=== PATIENT | female | born 1955 | race Caucasian/White ===

== ENCOUNTER 2017-09-20 12:29 | Emergency (ER) | payer OTHER ==
[2017-09-20 12:40] VITALS: RESP 18
[2017-09-20 13:08] LABS: Basophils % (A) 0 %; Eosinophils # (A) 0.3 k/uL (0-0.7); Eosinophils % (A) 4 %; HCT 40.3 % (34.0-46.0); HGB 13.8 gm/dL (11.4-16.0); Lymphocytes # (A) 1.9 k/uL (1.0-4.8); Lymphocytes % (A) 29 %; MCH 27.8 pg (25.0-35.0); MCHC 34.1 g/dL (31.0-37.0); MCV 81.4 fL (80.0-100.0); Mean Platelet Volume 6.6; Monocytes # (A) 0.4 k/uL (0-1.0); Monocytes % (A) 6 %; Neutrophils # (A) 3.9 k/uL (1.3-7.7); Neutrophils % (A) 58 %; Platelet Count 276 k/uL (150-450); RBC 4.95 m/uL (3.80-5.40); RDW 13.1 % (11.5-15.5); WBC 6.7 k/uL (3.8-10.6)
[2017-09-20 13:13] LABS: Prothrombin Time 9.9 sec (9.0-12.0)
[2017-09-20 13:18] LABS: ALT 29 U/L (9-52); AST 21 U/L (14-36); Albumin 4.1 g/dL (3.5-5.0); Alkaline Phosphatase 75 U/L (38-126); Anion Gap 10 mmol/L; Blood Urea Nitrogen 11 mg/dL (7-17); Calcium 9.1 mg/dL (8.4-10.2); Carbon Dioxide 31 mmol/L (22-30); Chloride 97 mmol/L (98-107); Glucose 115 mg/dL (74-99); Magnesium 1.9 mg/dL (1.6-2.3); Potassium 3.7 mmol/L (3.5-5.1); Sodium 138 mmol/L (137-145); Total Bilirubin 0.3 mg/dL (0.2-1.3); Total Protein 6.3 g/dL (6.3-8.2)
[2017-09-20 13:23] LABS: Creatine Kinase 114 U/L (30-135)
[2017-09-20 13:34] LABS: Creatine Kinase MB 1.1 ng/mL (0.0-2.4); Troponin I <0.012 ng/mL (0.000-0.034)
[2017-09-20] MEDS ORDERED: ASPIRIN 81 MG PO STA (13:34)
[2017-09-20] MEDS ORDERED: NITROGLYCERIN OINT 1 INCH/GM PACKET TOPICAL STA (13:34)
--- NOTE | 2017-09-20 13:37 | ED ---
General Adult HPI - General Chief complaint: Arrhythmia/Palpitations Stated complaint: heart palpitations/SOB Time Seen by Provider: 09/20/17 12:40 Source: patient, RN notes reviewed Mode of arrival: wheelchair Limitations: no limitations - History of Present Illness Initial comments: This is a 62-year-old female with a past medical history significant for high blood pressure high cholesterol and a smoking history 24 years ago and a strong family history for cardiac disease. Patient states over the last few days her blood pressures been high she's also had some chest discomfort which is associated with shortness of breath that lasted about 10 minutes. Patient states yesterday she was getting some jaw pain and bilateral arm pain. Patient states right now she is not having any of those symptoms her only symptom currently is generalized weakness. Patient denies any recent fever chills or cough. Patient denies headache patient denies numbness weakness. Patient denies lightheadedness dizziness or near syncopal episode. - Related Data Home Medications Medication Instructions Recorded Confirmed ARIPiprazole [Abilify] 2 mg PO DAILY 10/08/14 09/20/17 Biotin 5 mg PO DAILY 10/08/14 09/20/17 Cod Liver Oil 1 cap PO DAILY 10/08/14 09/20/17 Cranberry Conc/C/Bacill Coag 1 tab PO DAILY 10/08/14 09/20/17 [Cranberry Tablet] DULoxetine HCL [Cymbalta] 60 mg PO DAILY 10/08/14 09/20/17 Docusate [Colace] 100 mg PO BID 10/08/14 09/20/17 Fluticasone Propionate [Flonase 1 spray EA NOSTRIL DAILY 10/08/14 09/20/17 Allergy Relief] HYDROcodone/APAP 10-325MG [[place] 1 tab PO Q6H PRN 10/08/14 09/20/17 10] Losartan Potassium [Cozaar] 100 mg PO HS 10/08/14 09/20/17 Montelukast [Singulair] 10 mg PO HS 10/08/14 09/20/17 Pravastatin Sodium [Pravachol] 10 mg PO HS 10/08/14 09/20/17 Pregabalin [Lyrica] 150 mg PO BID PRN 10/08/14 09/20/17 clonazePAM [KlonoPIN] 0.5 mg PO QID PRN 10/08/14 09/20/17 diphenhydrAMINE [Benadryl] 25 mg PO BID PRN 10/08/14 09/20/17 traZODone HCL [Desyrel] 100 mg PO HS 10/08/14 09/20/17 Ascorbic Acid [Vitamin C] 1,000 mg PO DAILY 09/20/17 09/20/17 Calcium Carbonate [Calcium] 600 mg PO DAILY 09/20/17 09/20/17 Multivit with Calcium,Iron,Min 1 tab PO DAILY 09/20/17 09/20/17 [Women's Multivitamin] Allergies Allergy/AdvReac Type Severity Reaction Status Date / Time iodine Allergy Rash/Hives Verified 09/20/17 14:14 nickel Allergy Rash/Hives Verified 09/20/17 14:14 Review of Systems ROS Statement: Those systems with pertinent positive or pertinent negative responses have been documented in the HPI. ROS Other: All systems not noted in ROS Statement are negative. Past Medical History Past Medical History: Fibromyalgia, GERD/Reflux, Hyperlipidemia, Hypertension, Osteoarthritis (OA) Additional Past Medical History / Comment(s): recent UTI-just finished antibiotics History of Any Multi-Drug Resistant Organisms: None Reported Past Surgical History: Bariatric Surgery, Section, Joint Replacement, Tonsillectomy Additional Past Surgical History / Comment(s): both knees replaced, gastric sleeve Past Anesthesia/Blood Transfusion Reactions: Postoperative Nausea & Vomiting ( PONV) Past Psychological History: Anxiety, Depression Smoking Status: Former smoker Past Alcohol Use History: None Reported Past Drug Use History: None Reported - Past Family History Mother Family Medical History: Cancer General Exam - General Exam Comments Initial Comments: GENERAL: Patient is well-developed and well-nourished. Patient is nontoxic and well- hydrated and is in mild distress. ENT: Neck is soft and supple. No significant lymphadenopathy is noted. Oropharynx is clear. Moist mucous membranes. Neck has full range of motion without eliciting any pain. EYES: The sclera were anicteric and conjunctiva were pink and moist. Extraocular movements were intact and pupils were equal round and reactive to light. Eyelids were unremarkable. PULMONARY: Unlabored respirations. Good breath sounds bilaterally. No audible rales rhonchi or wheezing was noted. CARDIOVASCULAR: There is a regular rate and rhythm without any murmurs gallops or rubs. ABDOMEN: Soft and nontender with normal bowel sounds. No palpable organomegaly was noted. There is no palpable pulsatile mass. SKIN: Skin is clear with no lesions or rashes and otherwise unremarkable. NEUROLOGIC: Patient is alert and oriented x3. Cranial nerves II through XII are grossly intact. Motor and sensory are also intact. Normal speech, volume and content. Symmetrical smile. MUSCULOSKELETAL: Normal extremities with adequate strength and full range of motion. No lower extremity swelling or edema. No calf tenderness. LYMPHATICS: No significant lymphadenopathy is noted PSYCHIATRIC: Normal psychiatric evaluation. Normal interpersonal interactions appears functionally intact in deals appropriately with others. No signs of depression. No signs of anxiety. Limitations: no limitations Course Vital Signs 09/20/17 09/20/17 09/20/17 12:37 14:39 16:26 Temperature 97.6 F Pulse Rate 93 89 89 Respiratory 18 18 18 Rate Blood Pressure 150/71 146/76 144/78 O2 Sat by Pulse 96 99 97 Oximetry 09/20/17 17:53 Temperature 98 F Pulse Rate 92 Respiratory 18 Rate Blood Pressure 154/66 O2 Sat by Pulse 97 Oximetry Medical Decision Making - Medical Decision Making EKG shows a normal sinus rhythm at 83 bpm MN interval 290 QRS is 78 QT interval 350 QTC is 420. Patient's EKG shows no ST segment elevation or depression or T wave abnormalities are noted. Chest x-ray shows no acute abnormality. Patient was chest pain-free throughout her ED course and her troponin was negative so I held the heparin at this time. I spoke with Dr. Major he agreed to admit the patient admitted the patient and I consult to cardiology. - Lab Data Result diagrams: 09/20/17 12:45 09/20/17 12:45 Lab Results 09/20/17 09/20/17 09/20/17 Range/Units 12:45 12:45 12:45 WBC 6.7 (3.8-10.6) k/uL RBC 4.95 (3.80-5.40) m/uL Hgb 13.8 (11.4-16.0) gm/dL Hct 40.3 (34.0-46.0) % MCV 81.4 (80.0-100.0) fL MCH 27.8 (25.0-35.0) pg MCHC 34.1 (31.0-37.0) g/dL RDW 13.1 (11.5-15.5) % Plt Count 276 (150-450) k/uL Neutrophils % 58 % Lymphocytes % 29 % Monocytes % 6 % Eosinophils % 4 % Basophils % 0 % Neutrophils # 3.9 (1.3-7.7) k/uL Lymphocytes # 1.9 (1.0-4.8) k/uL Monocytes # 0.4 (0-1.0) k/uL Eosinophils # 0.3 (0-0.7) k/uL Basophils # 0.0 (0-0.2) k/uL PT (9.0-12.0) sec INR (<1.2) APTT (22.0-30.0) sec D-Dimer (<0.60) mg/L FEU Sodium 138 (137-145) mmol/L Potassium 3.7 (3.5-5.1) mmol/L Chloride 97 L (98-107) mmol/L Carbon Dioxide 31 H (22-30) mmol/L Anion Gap 10 mmol/L BUN 11 (7-17) mg/dL Creatinine 0.60 (0.52-1.04) mg/dL Est GFR (CKD-EPI)AfAm >90 (>60 ml/min/1.73 sqM) Est GFR (CKD-EPI)NonAf >90 (>60 ml/min/1.73 sqM) Glucose 115 H (74-99) mg/dL Calcium 9.1 (8.4-10.2) mg/dL Magnesium 1.9 (1.6-2.3) mg/dL Total Bilirubin 0.3 (0.2-1.3) mg/dL AST 21 (14-36) U/L ALT 29 (9-52) U/L Alkaline Phosphatase 75 (38-126) U/L Total Creatine Kinase 114 (30-135) U/L CK-MB (CK-2) 1.1 (0.0-2.4) ng/mL CK-MB (CK-2) Rel Index 1.0 Troponin I <0.012 (0.000-0.034) ng/mL Total Protein 6.3 (6.3-8.2) g/dL Albumin 4.1 (3.5-5.0) g/dL 04/19/18 04/19/18 Range/Units 12:45 14:22 WBC (3.8-10.6) k/uL RBC (3.80-5.40) m/uL Hgb (11.4-16.0) gm/dL Hct (34.0-46.0) % MCV (80.0-100.0) fL MCH (25.0-35.0) pg MCHC (31.0-37.0) g/dL RDW (11.5-15.5) % Plt Count (150-450) k/uL Neutrophils % % Lymphocytes % % Monocytes % % Eosinophils % % Basophils % % Neutrophils # (1.3-7.7) k/uL Lymphocytes # (1.0-4.8) k/uL Monocytes # (0-1.0) k/uL Eosinophils # (0-0.7) k/uL Basophils # (0-0.2) k/uL PT 9.9 (9.0-12.0) sec INR 1.0 (<1.2) APTT 25.0 (22.0-30.0) sec D-Dimer 0.26 (<0.60) mg/L FEU Sodium (137-145) mmol/L Potassium (3.5-5.1) mmol/L Chloride (98-107) mmol/L Carbon Dioxide (22-30) mmol/L Anion Gap mmol/L BUN (7-17) mg/dL Creatinine (0.52-1.04) mg/dL Est GFR (CKD-EPI)AfAm (>60 ml/min/1.73 sqM) Est GFR (CKD-EPI)NonAf (>60 ml/min/1.73 sqM) Glucose (74-99) mg/dL Calcium (8.4-10.2) mg/dL Magnesium (1.6-2.3) mg/dL Total Bilirubin (0.2-1.3) mg/dL AST (14-36) U/L ALT (9-52) U/L Alkaline Phosphatase (38-126) U/L Total Creatine Kinase (30-135) U/L CK-MB (CK-2) (0.0-2.4) ng/mL CK-MB (CK-2) Rel Index Troponin I (0.000-0.034) ng/mL Total Protein (6.3-8.2) g/dL Albumin (3.5-5.0) g/dL Disposition Clinical Impression: Unstable angina Disposition: ADMITTED IP TO THIS HOSP Is patient prescribed a controlled substance at d/c from ED?: No Referrals: Derek Major MD [Primary Care Provider] - 1-2 days Time of Disposition: 14:55
--- NOTE | 2017-09-20 14:06 | XR ---
EXAMINATION TYPE: XR chest 2V DATE OF EXAM: 09/20/2017 COMPARISON: 11/25/2008 HISTORY: Shortness of breath TECHNIQUE: Frontal and lateral views of the chest are obtained. FINDINGS: Scattered senescent parenchymal changes noted. No evidence for infiltrate. No evidence for atelectasis. Heart size is stable. Mediastinal structures are stable and grossly unremarkable. No evidence for hilar prominence. Degenerative changes dorsal spine. IMPRESSION: 1. No evidence for acute pulmonary disease.
[2017-09-20] MEDS ORDERED: NITROGLYCERIN SL TABS 0.4 MG TAB SUBLINGUAL PRN (14:55)
[2017-09-20] MEDS ORDERED: HYDROcodone/APAP 10-325MG 1 EACH TAB PO ONE (16:22)
[2017-09-20] MEDS ORDERED: clonazePAM 0.5 MG TAB PO STA (16:22)
[2017-09-20 17:54] VITALS: BP 154/66; PULSE 92; TEMP 98
[2017-09-20] MEDS ORDERED: NITROGLYCERIN OINT 1 INCH/GM PACKET TOPICAL SCH (19:00)
[2017-09-21] MEDS ORDERED: ASPIRIN 325 MG TAB PO SCH (09:00)
== END 2017-09-20 18:31 | disposition other institution (70) ==
LOC: EC 12:29 → 3OBS 14:55 → UNDOADMOB 14:55 → EC 18:31
DX: I20.0 Unstable angina (principal); M79.7 Fibromyalgia; E78.5 Hyperlipidemia, unspecified; I10 Essential (primary) hypertension; F41.9 Anxiety disorder, unspecified; F32.9 Major depressive disorder, single episode, unspecified; Z87.891 Personal history of nicotine dependence; Z96.653 Presence of artificial knee joint, bilateral; Z98.84 Bariatric surgery status; Z79.51 Long term (current) use of inhaled steroids; Z79.899 Other long term (current) drug therapy; Z91.048 Other nonmedicinal substance allergy status
CPT/HCPCS: 36415; 71046; 80053; 82550; 82553; 83735; 84484; 85025; 85379; 85610; 85730; 93005; 99285

== ENCOUNTER → 2017-11-15 | Outpatient (CLI) | payer OTHER | END | disposition home or self-care (01) | LOC: RADMRIMAIN 14:06 | PROVIDERS: ATTEND Internal Medicine | DX: Z53.9 Procedure and treatment not carried out, unspecified reason (principal) ==

== ENCOUNTER → 2017-12-07 | Outpatient (CLI) | payer OTHER ==
--- NOTE | 2017-12-08 01:52 | MR ---
EXAMINATION TYPE: MR marta/vincent wo con DATE OF EXAM: 12/07/2017 COMPARISON: 02/02/2015 thoracic spine. 07/02/2014. Lumbar spine. HISTORY: Chronic mid/lower back pain TECHNIQUE: Multiplanar, multisequence imaging of the lumbar spine is performed without IV contrast. FINDINGS: Thoracic vertebra have normal alignment. There is no significant disc space narrowing. Ther e is no compression fracture. There tiny posterior disc bulges at several levels of the thoracic spin e. There is no spinal stenosis. There is developmentally adequate canal. There is no thoracic paraspi nal mass. The posterior elements are intact. I see no bony destructive process. The lumbar vertebra have fairly normal alignment. There is 3 mm anterior subluxation of L4 in relatio n L5. The posterior elements are intact. There is some facet arthropathy and mild lateral recess sten osis at L4-5. There is no lumbar paraspinal mass. There is no lumbar compression fracture. The neural foramina appear fairly well-maintained. I see no bony destructive process. There is no lumbar compre ssion fracture. IMPRESSION: Minor degenerative changes in the thoracic and lumbar spine. No compression fracture. No spinal steno sis. There is a mild degenerative subluxation at L4-5 that is slightly more than last exam. There is increase in the lateral recess stenosis at L4-5 compared to old exam. No fracture. Small posterior di sc bulging in the thoracic and lumbar spine without impingement on the neural elements.
== END | disposition home or self-care (01) ==
LOC: RADMRIMAIN 16:27
PROVIDERS: ATTEND Internal Medicine
DX: M48.061 Spinal stenosis, lumbar region without neurogenic claudication (principal); M51.25 Other intervertebral disc displacement, thoracolumbar region; M47.815 Spondylosis without myelopathy or radiculopathy, thoracolumbar region
CPT/HCPCS: 72146; 72148

== ENCOUNTER → 2020-04-09 | Outpatient (CLI) | payer MEDICARE ==
--- NOTE | 2020-04-12 12:17 | MM ---
Reason for exam: screening (asymptomatic). Last mammogram was performed 3 years ago. History: Patient is postmenopausal and had first child at age 31. Family history of breast cancer in mother at age 83. Took estrogen for 6 months. Took progesterone for 6 months. Physical Findings: A clinical breast exam by your physician is recommended on an annual basis and results should be correlated with mammographic findings. MG Screening Mammo w CAD Bilateral CC and MLO view(s) were taken. Prior study comparison: March 28, 2017, bilateral MG screening mammo w CAD. March 15, 2015, bilateral MG screening mammo w CAD. Finding: There are typically benign round calcifications in both breasts. There is no discrete abnormality. ASSESSMENT: Benign, BI-RAD 2 RECOMMENDATION: Routine screening mammogram of both breasts in 1 year.
== END | disposition home or self-care (01) ==
LOC: RADMAMWWP 14:36
PROVIDERS: ATTEND Internal Medicine
DX: Z12.31 Encounter for screening mammogram for malignant neoplasm of breast (principal)
CPT/HCPCS: 77067

== ENCOUNTER 2024-11-25 06:52 | Day surgery (SDC) | payer MEDICARE ==
[2024-11-20 15:43] VITALS: BMI 34.4
[~2024-11-25 06:52] MED LIST: LIDOCAINE 1% (10MG/ML) FOR IV START INTRADERMA PRN
[2024-11-25 07:27] VITALS: TEMP 98.1
[2024-11-25] MEDS: LACTATED RINGERS 1,000 ML IV SCH (07:30)
[2024-11-25] MEDS: IV FLUID CONTINUATION 1,000 ML IV ONE (07:30)
[2024-11-25] MEDS ORDERED: PROPOFOL 10 MG/ML 20 ML VIAL IV ONE (07:57)
[2024-11-25] MEDS ORDERED: LIDOCAINE 2% (PF) 20 MG/ML 5 ML VIAL ONE (07:57)
[2024-11-25] MEDS ORDERED: GLYCOPYRROLATE 0.2 MG/ML 2 ML VIAL ONE (07:57)
--- NOTE | 2024-11-25 08:01 | P.GSHP ---
History of Present Illness H&P Date: 11/25/24 Chief Complaint: GERD, low iron, change in bowel habits 69-year-old female here for upper and lower endoscopy. Patient with low iron reportedly. Patient has had intermittent reflux and occasional vomiting. History of previous sleeve gastrectomy at [facility]. Patient describes incomplete evacuation. Says she often feels impacted. Has lower pelvic pressure type discomfort. No recent imaging. Family history of colon cancer in her aunt. 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 1 BROTHER WITH SKIN CANCER Sister(s) Family Medical History: Cancer Additional Family Medical History / Comment(s): SKIN Medications and Allergies Home Medications Medication Instructions Recorded Confirmed Type Cranberry Conc/C/Bacill Coag 2 tab PO DAILY 10/08/14 11/25/24 History [Cranberry Tablet] DULoxetine HCL [Cymbalta] 120 mg PO DAILY 10/08/14 11/25/24 History Losartan Potassium [Cozaar] 100 mg PO HS 10/08/14 11/25/24 History Montelukast [Singulair] 10 mg PO HS 10/08/14 11/25/24 History traZODone HCL [Desyrel] 50 mg PO HS 10/08/14 11/25/24 History Acetaminophen [Tylenol Arthritis] 1,300 mg PO TID 11/20/24 11/25/24 History Albuterol Sulfate [Albuterol 2 puff PO Q6H PRN 11/20/24 11/25/24 History Sulfate Hfa] Cetirizine HCl [Zyrtec] 10 mg PO DAILY 11/20/24 11/25/24 History Metoprolol Tartrate [Lopressor] 100 mg PO BID 11/20/24 11/25/24 History Triamcinolone Acetonide 1 applic TOPICAL DAILY PRN 11/20/24 11/25/24 History [Triamcinolone Acetonide 0.1% Lotion] dilTIAZem HCL 60 mg PO TID 11/20/24 11/25/24 History Apixaban [Eliquis] 5 mg PO BID 11/25/24 11/25/24 History Allergies Allergy/AdvReac Type Severity Reaction Status Date / Time amoxicillin [From Augmentin] Allergy Nausea & Verified 11/25/24 07:15 Vomiting & Diarrhea clavulanic acid Allergy Nausea & Verified 11/25/24 07:15 [From Augmentin] Vomiting & Diarrhea iodine Allergy Rash/Hives Verified 11/25/24 07:15 nickel Allergy Rash/Hives Verified 11/25/24 07:15 Surgical - Exam Vital Signs Temp Pulse Resp BP Pulse Ox 98.1 F 84 16 125/86 97 11/25/24 07:20 11/25/24 07:20 11/25/24 07:20 11/25/24 07:20 11/25/24 07:20 Physical exam: General: Well-developed, well-nourished HEENT: Normocephalic, sclerae nonicteric Abdomen: Nontender, nondistended Extremities: No edema Neuro: Alert and oriented Assessment and Plan (1) Change in bowel habits Narrative/Plan: Will proceed with upper and lower endoscopy Current Visit: Yes Status: Acute Code(s): R19.4 - CHANGE IN BOWEL HABIT SNOMED Code(s): 18096614
--- NOTE | 2024-11-25 08:26 | P.PCN ---
Date of Procedure: 11/25/24 Procedure(s) Performed: PREOPERATIVE DIAGNOSIS: Low iron, GERD, change in bowel habits POSTOPERATIVE DIAGNOSIS: Mild gastritis, small hiatal hernia, mild distal esophagitis, diverticulosis, transverse colon polyp PROCEDURE: 1. EGD with biopsy 2. Colonoscopy with biopsy [place] [facility] [place]GEON: Jim Ybarra M.D. SPECIMENS: Antrum, distal esophagus, transverse colon polyp ENDOSCOPIC PROCEDURE: The patient was on the endoscopy table in the left decubitus position. The Olympus gastroscope was inserted into the oropharynx and passed under direct visualization to the region of the third portion of the duodenum. From that point the scope was slowly withdrawn inspecting all surfaces carefully. There were no neoplastic inflammatory or polypoid lesions throughout the duodenum. The pylorus was widely patent. The stomach was carefully inspected. There was mild gastritis present. A biopsy of the antrum took place to rule out H. pylori. No retroflexion took place because of the previous sleeve gastrectomy. The sleeve itself was normal shape without significant angulation or tortuosity. There was no signs of obstruction. The patient had a small 1 cm hiatal hernia. At the distal esophagus there was mild noncircumferential inflammatory change. A biopsy took place. The remainder the esophagus appeared normal. The patient was kept on the endoscopy table in the left decubitus position. The Olympus colonoscope was inserted into the anus and passed under direct visualization to the base of the cecum. The appendiceal orifice was visualized. From that point the scope was slowly withdrawn inspecting all surfaces carefully. There were no neoplastic inflammatory or polypoid lesions throughout the cecum or ascending colon. In the transverse colon a small polyp was seen and removed using the cold biopsy forceps. The remainder of the transverse descending sigmoid and rectum was normal. The patient had mild left-sided diverticulosis as well. Digital rectal examination was normal. The patient was taken to the recovery room in stable condition per anesthesia guidelines. RECOMMENDATIONS: Await biopsy results. Low iron could be on the basis of gastritis and distal esophagitis. Consideration for daily antiacids will be discussed with the patient. Consider CT abdomen pelvis given the patient's complaints of lower abdominal discomforts. Will contact patient with timing for next colonoscopy.
[2024-11-25 08:43] VITALS: RESP 16
[2024-11-25 09:25] VITALS: BP 141/71; PULSE 67
== END 2024-11-25 09:46 | disposition home or self-care (01) ==
LOC: ORWHC2ENDO 06:52
PROVIDERS: ATTEND Surgery
DX: E61.1 Iron deficiency (principal); K57.30 Diverticulosis of large intestine without perforation or abscess without bleeding; D12.3 Benign neoplasm of transverse colon; K29.50 Unspecified chronic gastritis without bleeding; K21.00 Gastro-esophageal reflux disease with esophagitis, without bleeding; K44.9 Diaphragmatic hernia without obstruction or gangrene; I48.91 Unspecified atrial fibrillation; I10 Essential (primary) hypertension; E78.5 Hyperlipidemia, unspecified; M79.7 Fibromyalgia; J45.909 Unspecified asthma, uncomplicated; F41.9 Anxiety disorder, unspecified; F32.A Depression, unspecified; H54.8 Legal blindness, as defined in USA; Z91.89 Other specified personal risk factors, not elsewhere classified; Z79.01 Long term (current) use of anticoagulants; Z79.899 Other long term (current) drug therapy; Z87.891 Personal history of nicotine dependence; Z98.84 Bariatric surgery status; Z88.0 Allergy status to penicillin; Z88.8 Allergy status to other drugs, medicaments and biological substances; Z88.1 Allergy status to other antibiotic agents; Z80.0 Family history of malignant neoplasm of digestive organs
CPT/HCPCS: 88305; 45380; 43239; J2704; J2003; J1596